=== PATIENT | male | born 1990 | race Caucasian/White ===

== ENCOUNTER 2018-02-13 12:57 | Emergency (ER) | payer BC, OTHER ==
[2018-02-13] MEDS ORDERED: KETOROLAC 15 MG/1 ML SDV IM ONE (13:42)
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
[2018-02-13] MEDS ORDERED: KETOROLAC 30 MG/1 ML SDV ONE (14:15)
[2018-02-13] MEDS ORDERED: KETOROLAC 30 MG/1 ML SDV IM ONE (14:17)
[2018-02-13] MEDS ORDERED: CYCLOBENZAPRINE 10MG PREPACK#3 BTL TAKEHOME ONE (14:43)
[2018-02-13 15:22] VITALS: BP 132/82
== END 2018-02-13 15:05 | disposition home or self-care (01) ==
LOC: CED 12:57
DX: M62.838 Other muscle spasm (principal); S13.9XXS Sprain of joints and ligaments of unspecified parts of neck, sequela; V47.0XXA Car driver injured in collision with fixed or stationary object in nontraffic accident, initial encounter; Y92.410 Unspecified street and highway as the place of occurrence of the external cause
CPT/HCPCS: 70450-PO; 72125-PO; J1885

== ENCOUNTER 2018-04-02 08:25 | Emergency (ER) | payer MEDICAID, OTHER ==
--- NOTE | 2018-04-02 09:18 | EDPHY ---
H & P Time Seen by Provider: 04/02/18 08:35 HPI/ROS: CHIEF COMPLAINT: Right elbow pain HISTORY OF PRESENT ILLNESS: Patient states he was skiing at [facility] 5 days ago when he injured his right arm. He told me he was skiing slowly through some bumps when he fell over backwards landing on his extended right arm. He felt pain and heard a"snap". He has been able to use the arm but it has been painful since. It is swollen and he says he cannot straighten it completely. He denies other injuries. He was wearing a helmet but did not hit his head. REVIEW OF SYSTEMS: Negative except per HPI. General Appearance: Alert, no distress. Eyes: Pupils equal and round no icterus Respiratory: No respiratory distress Neurological: Awake, alert, no focal deficits. Skin: Warm and dry, no rashes. Musculoskeletal: Neck is supple nontender. No CT LS spine pain. Right arm shows swelling to the elbow posteriorly. Tenderness to palpation to proximal ulna. Decreased passive range of motion in extension. Distal circulation sensation and movement intact to wrist and hand. Psychiatric: Patient is oriented X 3, there is no agitation. Medical/surgical history: Previous neck and back injury from skiing, nonsurgical. Social history: Previous smoker none for 8 years. Denies drugs. Rare alcohol. Smoking Status: Former smoker Constitutional: Initial Vital Signs Temperature (C) 36.6 C 04/02/18 08:32 Heart Rate 70 04/02/18 08:32 Respiratory Rate 16 04/02/18 08:32 Blood Pressure 120/80 04/02/18 08:32 O2 Sat (%) 97 04/02/18 08:32 O2 Delivery Mode Room Air Allergies/Adverse Reactions: No Known Allergies Allergy (Verified 04/02/18 08:31) Home Medications: Medication Instructions Recorded NK [No Known Home Meds] 04/02/18 Medical Decision Making - Diagnostics Imaging Results: Imaging Impressions Elbow X-Ray 04/02/18 08:49 Impression: Possible nondisplaced coronoid process fracture. If confirmation is important, consider noncontrast CT. Nondisplaced olecranon fracture Imaging: I viewed and interpreted images myself ED Course/Re-evaluation: 9:[address] Stevenson, orthopedist, plan is for sling, nonweightbearing, avoid NSAIDs, follow-up at office on 11 of April. Differential Diagnosis: Differential diagnosis includes but is not limited to fracture, dislocation, bursitis, soft tissue injury. After evaluation nondisplaced fracture noted of the proximal ulna. Discussed with orthopedist. Placed in sling. Given nonweightbearing instructions and follow-up information. Patient understands plan. Stable for discharge. Departure - Departure Disposition: Home, Routine, Self-Care Clinical Impression: Closed olecranon fracture Qualifiers: Encounter type: initial encounter Laterality: right Qualified Code(s): S52.021A - Displaced fracture of olecranon process without intraarticular extension of right ulna, initial encounter for closed fracture Condition: Good Instructions: Elbow Fracture (ED) Additional Instructions: Wear sling at all times except in the shower or while sleeping. Nonweightbearing to the right arm. You can use your wrist, hand as discussed. Also use ice, elevation for pain and swelling. Avoid nonsteroidal anti- inflammatory drugs such as ibuprofen, use Tylenol as needed for pain. Follow up with orthopedist on April 11. You will need to call next week to make an appointment. Referrals: Christopher Sanchez MD [Primary Care Provider] - As per Instructions Omid Stevenson MD [Medical Doctor] - As per Instructions
[2018-04-02 10:22] VITALS: BP 115/79
== END 2018-04-02 09:40 | disposition home or self-care (01) ==
LOC: CED 08:25
DX: S52.021A Displaced fracture of olecranon process without intraarticular extension of right ulna, initial encounter for closed fracture (principal); V00.321A Fall from snow-skis, initial encounter; Y92.838 Other recreation area as the place of occurrence of the external cause; Y93.23 Activity, snow (alpine) (downhill) skiing, snowboarding, sledding, tobogganing and snow tubing; Y99.9 Unspecified external cause status; Z87.891 Personal history of nicotine dependence
CPT/HCPCS: 73080-PO; A4565-ER